=== PATIENT | female | born 1935 | race Caucasian/White ===

== ENCOUNTER 2017-02-20 07:32 | Day surgery (SDC) | payer MEDICARE, BC ==
[~2017-02-20 07:32] MED LIST: Lactated Ringers 1,000 ML IV SCH; Lidocaine 1% 4 ML ONE; Lidocaine 1%/Sod Bicarbonate in NS 8.4% 1 ML Syringe IV PRN; Propofol 200 MG/20 ML SDV ONE; Sodium Chloride 0.9% 10 ML Syringe FLUSH PRN; fentaNYL 100 MCG/2 ML SDV ONE
--- NOTE | 2017-02-20 07:53 | PCM.PREANE ---
Preanesthetic Assessment - Physical Assessment Height: 1.63 m Weight: 63.73 kg - Allergies Allergies/Adverse Reactions: Allergies Allergy/AdvReac Type Severity Reaction Status Date / Time Sulfa (Sulfonamide Allergy unknown Verified 02/19/17 16:07 Antibiotics) hydromorphone HCl AdvReac Severe Delusions Verified 02/19/17 16:07 [From Dilaudid] PreAnesthesia Questionnaire HEENT History: Reports: Impaired vision, Other (see below) Other HEENT History: glasses, dentures Cardiovascular History: Reports: Hypertension Respiratory History: Reports: None Gastrointestinal History: Reports: Other (see below) Other Gastrointestinal History: mild malnutrition, rectal bleeding Genitourinary History: Reports: Other (see below) Other Genitourinary History: dysuria 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 Musculoskeletal History: Reports: None Neurological History: Reports: None Psychiatric History: Reports: None Endocrine/Metabolic History: Reports: Diabetes, type II Hematologic History: Reports: None Immunologic History: Reports: None Oncologic (Cancer) History: Reports: Colon Dermatologic History: Reports: None - Past Surgical History Head Surgeries/Procedures: Reports: None HEENT Surgical History: Reports: Cataract surgery - SUBSTANCE USE Smoking Status *Q: Never Smoker Second Hand Smoke Exposure: No Days Per Week of Alcohol Use: 0 Number of Drinks Per Day: 0 Total Drinks Per Week: 0 Recreational Drug Use History: No - HOME MEDS Home Medications: Home Meds Multivitamin [Multivitamins] 1 tab PO DAILY 08/30/14 [History] Saxagliptin HCl [Onglyza] 5 mg PO DAILY 04/12/15 [History] amLODIPine [Norvasc] 5 mg PO DAILY 02/19/17 [History] - CURRENT (IN HOUSE) MEDS Current Meds: Current Medications Lactated Ringer's (Ringers, Lactated) 1,000 mls @ 125 mls/hr IV ASDIRECTED RAVI Stop: 02/20/17 23:59 Lidocaine/Sodium Bicarbonate (Buffered Lidocaine 1% In Ns 8.4%) 0.25 ml IV ONETIME PRN PRN Reason: Prior to IV Start Stop: 02/20/17 23:59 Sodium Chloride (Saline Flush) 10 ml FLUSH ASDIRECTED PRN PRN Reason: Keep Vein Open Stop: 02/20/17 23:59 Discontinued Medications Fentanyl (Sublimaze) Confirm Administered Dose 100 mcg .ROUTE .STK-MED ONE Stop: 02/20/17 07:14 Lidocaine HCl (Xylocaine-Mpf 1%) Confirm Administered Dose 4 mls @ as directed .ROUTE .STK-MED ONE Stop: 02/20/17 07:14 Propofol (Diprivan 20 Ml) Confirm Administered Dose 200 mg .ROUTE .STK-MED ONE Stop: 02/20/17 07:14 Preanesthetic Assessment - ANESTHESIA/TRANSFUSION/FAMILY HX Anesthesia/Transfusion History: No Prior Transfusion(s), Prior Anesthesia (no problems) Family History of Anesthesia Reaction: No Intubation History: Unknown - REVIEW OF SYSTEMS Constitutional: Reports: no symptoms 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 Respiratory: Reports: no symptoms Cardiovascular: Reports: blood pressure problem (controlled with medicaions ) GI: Reports: no symptoms Other: Reports: Diabetes (controlled with medications ) - PHYSICAL ASSESSMENT HR: 62 O2 Sat by Pulse Oximetry: 97 RR: 18 BP: 138/64 Temp: 36.7 C Height: 1.63 m Weight: 63.73 kg NPO Status Date: 02/19/17 NPO Status Time: 20:00 ASA Class: 2 Mental Status: Alert & Oriented x3 Airway Class: Mallampati = 2 Dentition: Reports: Dentures (upper ) Thyro-Mental Finger Breadths: 3 Mouth Opening Finger Breadths: 3 ROM/Head Extension: Full Respiratory Status: lungs clear to auscultation bilaterally Cardiovascular Status: regular rate & rhythm, normal S1, S2, no murmur, blood pressure WNL - ALLERGIES Allergies/Adverse Reactions: Allergies Allergy/AdvReac Type Severity Reaction Status Date / Time Sulfa (Sulfonamide Allergy unknown Verified 02/19/17 16:07 Antibiotics) hydromorphone HCl AdvReac Severe Delusions Verified 02/19/17 16:07 [From Dilaudid] - BLOOD Blood Available: No Product(s) Available: None - ANESTHESIA PLAN Preop Beta Bernardo: No Anesthesia Type Planned: MAC - ACKNOWLEDGEMENTS Pt an Appropriate Candidate for the Planned Anesthesia: Yes Alternatives and Risks of Anesthesia Discussed w Pt/Guardian: Yes Pt/Guardian Understands and Agrees with Anesthesia Plan: Yes
--- NOTE | 2017-02-20 08:52 | PCM48HPAN ---
Post Anesthesia Note - EVALUATION WITHIN 48HRS OF ANESTHETIC Vital Signs in Normal Range: Yes Patient Participated in Evaluation: Yes Respiratory Function Stable: Yes Airway Patent: Yes Cardiovascular Function Stable: Yes Hydration Status Stable: Yes Pain Control Satisfactory: Yes Nausea and Vomiting Control Satisfactory: Yes Mental Status Recovered: Yes
--- NOTE | 2017-02-20 08:55 | PCM.OPNOTE ---
- General Post-Op/Procedure Note Date of Surgery/Procedure: 02/20/17 Operative Procedure(s): colonoscopy with sigmid biopsy Findings: Sigmoiditis, with some mucosal erosions, and no cancer seen. The anastomosis had no stricturing. Pre Op Diagnosis: history of colon cancer, s/p abdominal colectomy with ileostomy, takedown and ilio distal sigmoid anastomosis Post-Op Diagnosis: noninfectious sigmoiditis Anesthesia Technique: MAC, Moderate sedation Primary Surgeon: Bulmaro Mcmahon Pathology: sigmoid biopsies EBL in mLs: 0 Complications: None Condition: Good Free Text/Narrative:: After adequate IV sedation and analgesia was obtained the patient was placed on her left side for the procedure. Perianal inspection and digital rectal examination was normal. A lubricated colonoscope was inserted into the rectum and into the distal sigmoid where the ileal-sigmoid anastomosis was. There were areas of mild sigmoid inflammatory changes, most likely from enzymatic exposure , as well as bile salt exposure in the region. There are couple areas of superficial erosions, which I biopsied. There were no mass lesions in the ileum , sigmoid, or rectum in both views. The bowel preparation was adequate. Air was removed as I finished the procedure, which she tolerated well. Line Tender Flakeboard photographs were taken for the patient's record. She was taken recovery in stable condition.
[2017-02-20 09:23] VITALS: BP 124/68
== END 2017-02-20 09:20 | disposition home or self-care (01) ==
LOC: JD.SDS 07:32
PROVIDERS: ATTEND Surgery
DX: K62.89 Other specified diseases of anus and rectum (principal); K51.40 Inflammatory polyps of colon without complications; E11.9 Type 2 diabetes mellitus without complications; I10 Essential (primary) hypertension; Z88.2 Allergy status to sulfonamides; Z88.8 Allergy status to other drugs, medicaments and biological substances; Z90.49 Acquired absence of other specified parts of digestive tract; Z79.899 Other long term (current) drug therapy; Z98.890 Other specified postprocedural states; Z72.0 Tobacco use
CPT/HCPCS: 45380; 82962; 88305; J3010; J7120; J2704